=== PATIENT | female | born 1980 | race Caucasian/White ===

== ENCOUNTER 2016-09-19 06:34 | Inpatient (IN) | payer OTHER ==
[2016-09-19] MEDS ORDERED: EPSOM SALT 454 GM TP PRN (07:24)
[2016-09-19] MEDS ORDERED: TERBUTALINE SULFATE 1 MG/ML VIAL IV PRN (07:24)
[2016-09-19] MEDS ORDERED: LR 1,000 ML IV PRN (07:24)
[2016-09-19] MEDS ORDERED: OLIVE OIL 118 ML BTL MISC PRN (07:24)
[2016-09-19] MEDS ORDERED: OXYTOCIN/RINGERS LACTATE 1,000 ML IV PRN (07:24)
[2016-09-19 08:04] LABS: % IMMATURE GRANULYOCYTES 1.1 % (0.0-1.1); ABSOLUTE IMMATURE GRANULOCYTES 0.13 10^3/uL (0.00-0.10); ADD DIFF? NO; ADD MORPH? NO; ADD SCAN? NO; ATYPICAL LYMPHOCYTE FLAG 10 (0-99); FRAGMENT RBC FLAG 0 (0-99); HEMATOCRIT 35.4 % (38.0-47.0); HEMOGLOBIN 11.8 g/dL (12.6-16.3); LEFT SHIFT FLG 0 (0-99); LIPEMIA HEMOLYSIS FLAG 80 (0-99); MEAN CELL HEMOGLOBIN 29.6 pg (27.9-34.1); MEAN CELL HEMOGLOBIN CONCENTR. 33.3 g/dL (32.4-36.7); MEAN CELL VOLUME 88.9 fL (81.5-99.8); MEAN PLATELET VOLUME 9.3 fL (8.7-11.7); PLATELET CLUMPS FLAG 0 (0-99); PLATELET COUNT 331 10^3/uL (150-400); RED BLOOD CELL COUNT 3.98 10^6/uL (4.18-5.33); RED CELL DISTRIBUTION WIDTH 14.3 % (11.5-15.2)
[2016-09-19] MEDS ORDERED: OXYTOCIN/LR *STANDARD DOSE PROTOCOL IV SCH (08:30)
[2016-09-19] MEDS ORDERED: LIDOCAINE 1% 300 MG/30 ML SDV ONE (09:01)
[2016-09-19] MEDS ORDERED: OXYTOCIN 10 UNIT/ML VIAL ONE (09:02)
[2016-09-19] MEDS ORDERED: MISOPROSTOL 200 MCG TAB ONE (09:02)
[2016-09-19] MEDS ORDERED: TERBUTALINE SULFATE 1 MG/ML VIAL ONE (09:02)
[2016-09-19] MEDS ORDERED: OLIVE OIL 118 ML BTL ONE (09:02)
[2016-09-19] MEDS ORDERED: AMMONIA AROMATIC 1 EACH AMP IH ONE (09:02)
--- NOTE | 2016-09-19 13:32 | GHP ---
[f rep st] HISTORY AND PHYSICAL DATE OF ADMISSION: 09/19/2016 ADMITTING DIAGNOSES: 1. Intrauterine at 40 weeks and 3/7 days. 2. Induction of labor secondary to advanced maternal age. HISTORY OF PRESENT ILLNESS: Patient is a 36-year-old 3, para 2-0-0-2 at 40 and 3/7 weeks with estimated due date 09/16/2016 by a last menstrual period of 12/10/2015, and confirmed by first-trimester ultrasound at 12 weeks. The patient presents to Labor and Delivery for a scheduled induction of labor secondary to advanced maternal age. The patient states there is good movement. Denies any contractions, leakage of fluid or vaginal bleeding. The patient has good care at [facility], and presented at 12 weeks. is complicated by advanced maternal age. The patient declined genetic testing. She did have an early elevated 1 hour Glucola but the 3 hour Glucola was normal. The patient does have a history of IUGR with her second but was an appropriate gestational size at delivery. The patient did have borderline polyhydramnios at 20 weeks with an MARK of 21.7. The patient did receive Tdap and the flu vaccine. The patient developed anemia in her and is taking iron. GBS culture is negative. PAST OB HISTORY: In 2012, patient had a full-term vaginal delivery, a viable male infant, weighing 8 pounds at 41 weeks. The patient had an epidural. There was meconium-stained fluid. In 2014, she had a full-term vaginal delivery , a viable female , weighing 7 pounds 13 ounces at 41 weeks. IUGR earlier in the and the patient was induced. CAFETERIA DIRECTOR HISTORY: Age of menarche was 13. Cycles are regular every 28 days x4 days and last menstrual period was 12/10/2015. Positive test 01/14/2016. The patient denies any exposure to sexually transmitted diseases. Patient does have a history of abnormal Pap smears and did have a colposcopy in 2008, no other treatment and subsequent Pap smears normal. Pap smear in 02/2016 normal. The patient declined chlamydia, gonorrhea testing during this . PAST MEDICAL HISTORY: Unremarkable. PAST SURGICAL HISTORY: Colposcopy in 2008. HOME MEDICATIONS: Include [id number] vitamins, DHEA, folic acid. ALLERGIES: No known drug allergies. SOCIAL HISTORY: Patient is . She lives with her and their 2 children. 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 Denies any alcohol , tobacco or illicit drug use. FAMILY HISTORY: Mother and father with hypertension. Maternal grandmother breast cancer, diagnosed in her 70s. LABS: Patient is A positive, antibody negative. Early 1 hour Glucola was 131 with a normal 3 hour Glucola. RPR nonreactive. Rubella immune. Hepatitis B surface antigen negative. HIV negative. TSH 1.8. H and H, 12.8 and 38.1. One-hour Glucola at 28 weeks was normal at 105. GBS culture negative. PHYSICAL EXAM: VITAL SIGNS: On admission vital signs are stable. Patient is afebrile. GENERAL: Well-nourished, well-developed female. Alert and oriented x3. No apparent distress. CARDIOVASCULAR: Regular rate and rhythm. LUNGS: Clear to auscultation. Normal breath sounds. ABDOMEN: Gravid, soft, nontender , nondistended. EXTREMITIES: Normal to inspection without calf tenderness or edema. PELVIC: Patient is 2-3 cm dilated, 75% effaced and -1 station. Intact. Cephalic presentation. There is a category 1 strip. heart rate of 140 beats per minute. Positive accels, negative decels, moderate variability. ASSESSMENT: A 36-year-old 3, para 2-0-0-2 at 40 and 3/7 weeks who presents for induction of labor secondary to advanced maternal age. PLAN: 1. Admit to Labor and Delivery for induction of labor. 2. With a favorable cervix, will start Pitocin per protocol. 3. GBS is negative. No prophylactic antibiotics needed. 4. Patient desires an epidural. 5. Anticipate normal spontaneous vaginal delivery. /[id number]/MODL MTDD
--- NOTE | 2016-09-19 14:14 | OBPROG ---
OBG Labor Progress Note Assessment/Plan: Assessment: 26 y/o @ 40 3/ for IOL secondary to AMA Plan: Pitocin at 16 mu/min, cont per protocol FHTs - Cat I tracing with early decels She is close to getting an epidural After she is comfortable, will AROM Anticipate 09/19/16 14:11 Subjective: She states ctx's are getting more painful and will need the epidural soon. Denies any LOF or VB. Some spotting. Objective: 09/19/16 07:58 Patient ABO/Rh A POSITIVE 09/19/16 07:58 - SVE Dilation (cm): 5 Effacement (%): 80 Station: -1 Oxytocin Orders Assessment - Pre-Induction/Augmentation Assessment Indication: AMA Presentation: Vertex Gestational Age: 40 week(s) and 3 day(s) Estimated Weight: 2501-3400g Membrane Status: Intact Current Sterile Vaginal Exam (SVE): 5/90/-1 Current Contraction Pattern: Regular - Ambrose's Score Dilation: 5-6cm Effacement: 80+ Station: -1,0 Cervix: Soft Cervix Position: Mid Ambrose Score Total: 11 - Induction/Augmentation Consent Risks/Benefits of Procedure Reviewed/Pt Agrees to Proceed: Yes ICD10 Worksheet Patient Problems: Problems Problem Status Onset AMA (advanced maternal age) multigravida 35+ Acute
[2016-09-19] MEDS ORDERED: fentaNYL 2MCG/ML/BUP 0.1% RTU 100 ML BAG EP ONE (15:52)
[2016-09-19] MEDS ORDERED: BUPIVACAINE 0.25% 30 ML SDV ONE (15:52)
[2016-09-19] MEDS ORDERED: PHENYLEPHRINE HCL 100 MCG/ML SYR ONE (15:52)
[2016-09-19] MEDS ORDERED: ONDANSETRON 4 MG/2 ML VIAL IVP PRN (16:03)
[2016-09-19] MEDS ORDERED: PHENYLEPHRINE HCL 100 MCG/ML SYR IVP PRN (16:03)
[2016-09-19] MEDS ORDERED: NALOXONE HCL 0.4 MG/ML INJ IVP PRN (16:03)
--- NOTE | 2016-09-19 16:18 | OBGCSDC ---
General Delivery Information - General Info : 3 Para: 2 Abortions: 0 Delivery Physician/CNM: Catia Chase Admission Date: 09/19/16 Labs: Patient ABO/Rh A POSITIVE 09/19/16 07:58 Hct 35.4 % (38.0-47.0) L 09/19/16 07:58 Vaginal - Diagnosis Labor: Induced Presentation at Delivery: Vertex Rupture of Membranes Type: Spontaneous Amniotic Fluid Color: Clear Laceration: 1st Degree Repair: Other (Specify) (None) Delivery Events: Nuchal Cord (x2 loose, slipped on perineum) - Operations/Procedures L&D Analgesia/Anesthesia Type: Epidural - Hospital Course Antepartum: Course complicated by AMA-declined all genetic testing. Mild polyhydramnios on 20 week scan - pt asymptomatic. Anemia of . Intrapartum: IOL with pitocin. Started at 2-3/75/-2 then progressed to 5/90/-1. s/p Epidural. SROM-clear at 1630 and complete 45 minutes later and pushed x 2. [place] [facility] [place] Delivery Date: 09/19/16 Delivery Time: 17:30 MARTÍNEZ: 09/16/16 Gestational Age: 40 week(s) and 3 day(s) Sex of Infant: Female Score (1 Min): 8 Score (5 Min): 9
[2016-09-19] MEDS ORDERED: LR 500 ML IV SCH (16:30)
[2016-09-19] MEDS ORDERED: fentaNYL 2MCG/ML/BUP 0.1% RTU 100 ML EP SCH (16:30)
--- NOTE | 2016-09-19 16:55 | OBPROG ---
OBG Labor Progress Note Assessment/Plan: Assessment: 26 y/o @ 40 3/ for IOL secondary to AMA Plan: s/p epidural, pt is comfortable Pitocin at 18 mu/min, cont per protocol FHTs - Cat II tracing with intermittent variable decels SROM at 1630-clear fluid Anticipate 09/19/16 16:51 Subjective: Pt is comfortable, s/p epdidural. She can feel pressure though with each ctx. Objective: 09/19/16 07:58 Patient ABO/Rh A POSITIVE 09/19/16 07:58 - SVE Dilation (cm): 9 Effacement (%): 100 Station: 0 [place] Current Contraction Pattern: Regular FHR (bpm): 130 FHR Pattern Variability: Moderate FHR Category: 2 Membranes: SROM Amniotic Fluid Color: Clear - Physical Exam Estimated Weight: 2501-3400g Oxytocin Orders Assessment - Pre-Induction/Augmentation Assessment Presentation: Vertex Gestational Age: 40 week(s) and 3 day(s) Estimated Weight: 2501-3400g Current Contraction Pattern: Regular ICD10 Worksheet Patient Problems: Problems Problem Status Onset AMA (advanced maternal age) multigravida 35+ Acute
--- NOTE | 2016-09-19 17:45 | OBDEL ---
Info Type: Vaginal GBS+: No Vaginal Delivery - Labor and Delivery Onset of Contractions Date: 09/19/16 Onset of Contractions Time: 08:00 Onset of Contractions Type: Induced Rupture of Membranes Date: 09/19/16 Rupture of Membranes Time: 16:30 Rupture of Membranes Type: Spontaneous Amniotic Fluid Color: Clear Dilation Complete Date: 09/19/16 Dilation Complete Time: 17:15 Placenta Delivery Date: 09/19/16 Placenta Delivery Time: 17:35 Total Hours of Labor: 9 Laceration: 1st Degree, Other (Specify) Repair: Other (Specify) (None) Vaginal Sponge Count Correct: Yes (counts correct) Vaginal Needle Count Correct: Yes (counts correct) Vaginal Sweep Performed: Yes EBL: 300 cc Delivery Events: Nuchal Cord (x2 loose, slipped over perineum) - Medications Labor Augmentation/Induction Methods Used: Pitocin Labor Augmentation/Induction Indication: Other (Specify) (AMA) Operative Report - Delivery Surgeon: Catia Chase [place] [facility] [place] Delivery Date: 09/19/16 Delivery Time: 17:30 MARTÍNEZ: 09/16/16 Gestational Age: 40 week(s) and 3 day(s) Sex of Infant: Female Score (1 Min): 8 Score (5 Min): 9 ICD10 Worksheet Patient Problems: Problems Problem Status Onset (spontaneous vaginal delivery) Acute AMA (advanced maternal age) multigravida 35+ Acute
[2016-09-19] MEDS: IBUPROFEN 600 MG TAB PO PRN ×2 (18:05→23:51)
[2016-09-20] MEDS ORDERED: HYDROCODONE/APAP 5/325 TAB PO PRN (00:08)
[2016-09-20] MEDS ORDERED: SIMETHICONE 80 MG TAB CHEW PO PRN (01:34)
[2016-09-20] MEDS ORDERED: IBUPROFEN 600 MG TAB PO PRN (01:34)
[2016-09-20] MEDS ORDERED: HYDROCORTISONE 0.5% CREAM TP PRN (01:34)
[2016-09-20] MEDS ORDERED: DOCUSATE SODIUM 100 MG CAP PO PRN (01:34)
[2016-09-20] MEDS: IBUPROFEN 600 MG TAB PO PRN ×2 (05:28→15:52)
--- NOTE | 2016-09-20 09:23 | OBPP ---
Progress Note Assessment/Plan: Assessment: nipples intact well pain well managed ff@u scant rubra lochia perineum approximated voiding without difficulty vs wnl Plan:discharge to home with instructions discussed need for fu 4 weeks and 6 weeks pelvic rest, pain management , continue PNV, depression, pericare, , ss infection, anemia , rest, contraceptionverbalized understanding of all of the above 09/20/16 09:20 Subjective: Doing well denies difficulties. well. Pain well managed Objective: 09/19/16 07:58 Patient ABO/Rh A POSITIVE 09/19/16 07:58 Temp Pulse Resp BP Pulse Ox 36.3 C 81 16 108/68 95 09/19/16 22:30 09/19/16 22:30 09/19/16 22:30 09/19/16 22:30 09/19/16 22:30 Uterine Position/Fundal Height: At Umbilicus Uterine Tone: Firm Physical Exam - Physical Exam General Appearance: WD/WN, alert, no apparent distress Abdomen: other (FF2u) Extremities: normal range of motion, Domonique's sign (negative bilaterally, dtrs1+ bilaterally) DTR- Lower Extremities: Knee (R): 1+, Knee (L): 1+ (no clonus bilaterally) Skin: normal color, warm/dry Neuro/Psych: no motor/sensory deficits, alert, normal mood/affect, oriented x 3
[2016-09-20 10:22] VITALS: BP 119/78; PULSE 96; RESP 17; TEMP 98.4; O2SAT 92
--- NOTE | 2016-09-20 17:47 | OBGCSDC ---
General Delivery Information - General Info : 3 Para: 3 Labs: Patient ABO/Rh A POSITIVE 09/19/16 07:58 Hct 35.4 % (38.0-47.0) L 09/19/16 07:58 Vaginal - Diagnosis Labor: Induced Presentation at Delivery: Vertex Rupture of Membranes Type: Spontaneous Amniotic Fluid Color: Clear Laceration: 1st Degree Repair: Other (Specify) (None) Delivery Events: Nuchal Cord (x2 loose, slipped on perineum) - Operations/Procedures L&D Analgesia/Anesthesia Type: Epidural - Hospital Course : Doing well. Denies difficulties. well. PAin well managed. Dischagre to home today - Delivery L&D Analgesia/Anesthesia Type: Epidural [place] [facility] Delivery Date: 09/19/16 Delivery Time: 17:30 MARTÍNEZ: 09/16/16 Gestational Age: 40 week(s) and 4 day(s) Sex of Infant: Female Weight (gm): 3600 g Score (1 Min): 8 Score (5 Min): 9 Discharge Information - Discharge Information Condition: Good
== END 2016-09-20 20:30 | disposition home or self-care (01) | DRG 775 ==
LOC: FOBOP 06:34 → FLD 06:36 → FOB 20:24
PROVIDERS: ADMIT Advanced Practice Midwife; ATTEND Obstetrics & Gynecology
PROC: 3E033VJ Introduction of Other Hormone into Peripheral Vein, Percutaneous Approach (ICD-10-PCS; principal; 2016-09-19)
PROC: 10E0XZZ Delivery of Products of Conception, External Approach (ICD-10-PCS; principal; 2016-09-19)
DX: O70.0 First degree perineal laceration during delivery (principal); O69.81X0 Labor and delivery complicated by cord around neck, without compression, not applicable or unspecified; O48.0 Post-term pregnancy; Z3A.40 40 weeks gestation of pregnancy; Z37.0 Single live birth
CPT/HCPCS: J2370; J2590; J3105